=== PATIENT | male | born 1980 ===

== ENCOUNTER → 2020-06-27 | Outpatient (CLI) | payer SELFPAY | END | disposition home or self-care (01) | LOC: LAB SHORT 09:17 → LAB 09:17 | DX: Z30.2 Encounter for sterilization (principal) ==

== ENCOUNTER → 2020-11-02 | Outpatient (CLI) | payer SELFPAY | END | disposition home or self-care (01) | LOC: LAB SHORT 16:30 → LAB 16:30 | DX: R14.2 Eructation (principal) | CPT/HCPCS: 87338 ==